=== PATIENT | female | born 1930 | race Caucasian/White ===

== ENCOUNTER 2017-05-06 13:15 | Emergency (ER) | payer MEDICARE, OTHER ==
[~2017-05-06] VITALS: Ht 154.9 cm; Wt 63.5 kg
[~2017-05-06 13:15] MED LIST: ALBU2.5V13 IH; DISO100C4 PO; FERR240T2 PO; FLUT1DIS28 IH; FURO-152 PO; GUAI118S20 PO; METO-302 PO; METO25TA6 PO; MONT10TA25 PO; OMEP20CA4 PO; PRED-170 PO; PROP10TA10 PO; PROP10TA29 PO; ROSU5TAB PO; VERA240C2 PO; VERA240T97 PO
--- NOTE | 2017-05-06 13:44 | NUR ---
Pt evaluated by MD for back pain, s/p mechanical fall. A/O x 4, nad noted, orders obtained, awaiting CT.
--- NOTE | 2017-05-06 14:57 | NUR ---
Patient discharged home in stable conditon. Written and verbal after care instructions given. Patient verbalizes understanding of instructions. Family with pt.
[2017-05-06 14:59] VITALS: BP 156/60
== END 2017-05-06 15:00 | disposition home or self-care (01) ==
LOC: ER 13:15
DX: S20.219A Contusion of unspecified front wall of thorax, initial encounter (principal); I11.0 Hypertensive heart disease with heart failure; I50.9 Heart failure, unspecified; I25.10 Atherosclerotic heart disease of native coronary artery without angina pectoris; K21.9 Gastro-esophageal reflux disease without esophagitis; E11.9 Type 2 diabetes mellitus without complications; Z90.49 Acquired absence of other specified parts of digestive tract; W01.190A Fall on same level from slipping, tripping and stumbling with subsequent striking against furniture, initial encounter; Y93.89 Activity, other specified; Y92.9 Unspecified place or not applicable; Y99.9 Unspecified external cause status
CPT/HCPCS: 71250; A4663

== ENCOUNTER 2017-10-27 12:10 | Emergency (ER) | payer MEDICARE, MEDICAID ==
[~2017-10-27] VITALS: Ht 154.9 cm; Wt 63.5 kg
[~2017-10-27 12:10] MED LIST changes: -FERR240T2 PO; -FLUT1DIS28 IH; -GUAI118S20 PO; -METO-302 PO; +METO-356 PO; -OMEP20CA4 PO; -PRED-170 PO; -PROP10TA10 PO; -PROP10TA29 PO; -VERA240C2 PO
--- NOTE | 2017-10-27 12:30 | NUR ---
PT ND DAUGHTER EXPRESSING THAT RATHER GO TO [facility] FOR FOLLOW UP BECAUSE THEIR MD AND CREW SUPERVISOR IS THERE AND THEY HAVE APPT WITH THEM.
[2017-10-27] MEDS ORDERED: ROSU5TAB PO (12:35)
[2017-10-27] MEDS ORDERED: POTA10CA43 PO (12:35)
[2017-10-27] MEDS ORDERED: EPLE25TA10 PO (12:35)
[2017-10-27] MEDS ORDERED: SENN-71 PO (12:35)
[2017-10-27] MEDS ORDERED: METO-357 PO (12:35)
[2017-10-27 13:04] LABS: HEMATOCRIT 35.1 % (31.2-41.9); HEMOGLOBIN 11.7 g/dL (10.9-14.3); MEAN CORPUSCULAR HEMOGLOBIN 28.1 uug (24.7-32.8); MEAN CORPUSCULAR HGB CONC 33 g/dL (32.3-35.6); MEAN CORPUSCULAR VOLUME 84.2 fL (75.5-95.3); NEUTROPHILS % (AUTO) 63.9 % (38.5-71.5); PLATELET COUNT (AUTO) 318 K/uL (179-408); RED BLOOD CELL COUNT(AUTO) 4.17 MIL/uL (3.63-4.92); WHITE BLOOD COUNT (AUTO) 4.5 K/uL (3.8-11.8)
[2017-10-27 13:05] LABS: BASOPHILS # (AUTO) 0.1 K/uL (0.0-8.0); BASOPHILS % (AUTO) 1.2 % (0.0-2.0); EOSINOPHILS # (AUTO) 0.1 K/uL (0.0-0.7); EOSINOPHILS % (AUTO) 2.3 % (0.0-7.0); LYMPHOCYTES # (AUTO) 1.1 K/uL (20.0-40.0); LYMPHOCYTES % (AUTO) 23.6 % (20.5-51.5); MONOCYTES # (AUTO) 0.4 K/uL (2.0-10.0); NEUTROPHILS # (AUTO) 2.8 K/uL (1.8-8.9)
[2017-10-27] MEDS ORDERED: PROP20TA7 PO (13:11)
--- NOTE | 2017-10-27 13:11 | NUR ---
MEDICATION LIST REVIEWED WITH PT'S DAUGHTER.
[2017-10-27 13:15] LABS: CARBON DIOXIDE 27 mmol/L (21-32); CHLORIDE 97 mmol/L (98-107); CREATININE 0.9 mg/dL (0.6-1.3); GLUCOSE 92 mg/dL (74-106); POTASSIUM 4.1 mmol/L (3.5-5.1); UREA NITROGEN, BLOOD 9 mg/dL (7-18)
[2017-10-27 13:28] LABS: ALANINE AMINOTRANSFERASE 17 U/L (14-59); ALKALINE PHOSPHATASE 78 U/L (50-136); ASPARTATE AMINOTRANSFERASE 17 U/L (15-37); BILIRUBIN,DIRECT 0.1 mg/dL (0.0-0.2); BILIRUBIN,TOTAL 0.5 mg/dL (0.2-1.0); TOTAL PROTEIN, SERUM 7.8 g/dL (6.4-8.2)
[2017-10-27] MEDS ORDERED: PEDIATRIC ORAL ELECTROLYTE 237 ML BOTTLE PO ONE (14:00)
[2017-10-27] MEDS ORDERED: PEDIATRIC ORAL ELECTROLYTE 237 ML BOTTLE ONE (14:03)
--- NOTE | 2017-10-27 14:43 | NUR ---
Patient discharged to home in stable conditon. Written and verbal after care instructions given. Patient verbalizes understanding of instructions.PT WALKS IN STEADY GAIT. PT ACCOMPANIED BY DAUGHTER WHO IS VERY INVOLVED IN CARE OF THE PT.
[2017-10-27 14:45] VITALS: BP 141/69
== END 2017-10-27 14:48 | disposition home or self-care (01) ==
LOC: ER 12:10
DX: J90 Pleural effusion, not elsewhere classified (principal); R19.7 Diarrhea, unspecified; I11.0 Hypertensive heart disease with heart failure; I50.9 Heart failure, unspecified; E11.9 Type 2 diabetes mellitus without complications; I25.10 Atherosclerotic heart disease of native coronary artery without angina pectoris; K21.9 Gastro-esophageal reflux disease without esophagitis; Z90.49 Acquired absence of other specified parts of digestive tract; Z79.899 Other long term (current) drug therapy
CPT/HCPCS: 36415; 71045; 80048; 80076; 83605; 83880; 84484; 85025; 85730; 87040 ×2; 93005; 99285; A4663; 70030-TC

== ENCOUNTER 2018-04-08 21:35 | Inpatient (IN) | payer MEDICARE, MEDICAID ==
[~2018-04-08] VITALS: Ht 152.4 cm; Wt 61.2 kg
[~2018-04-08 21:35] MED LIST changes: +EPLE25TA10 PO; +METO-357 PO; -METO25TA6 PO; -MONT10TA25 PO; +POTA10CA43 PO; +PROP20TA7 PO; +SENN-71 PO; -VERA240T97 PO
--- NOTE | 2018-04-08 21:40 | NUR ---
Dr. Porter at bedside for MSE. Pt bib rescue 88, c/o sob x 1 hour, has hx of chf, edema +2 on bilat low ext.
[2018-04-08] MEDS ORDERED: NITROGLYCERIN 0.4 MG/TAB BOTTLE SL ONE ×2 (21:45→21:52)
--- NOTE | 2018-04-08 21:47 | NUR ---
Respiratory at bedside.
--- NOTE | 2018-04-08 21:50 | NUR ---
Pt received in ER with respiratory distress. Placed on BIPAP per MD Poretr's verbal orders. Pt is on BIPAP 12/5, Rate-12, FIO2-100%.. Tolerating settings well. Increase in SpO2-98%, and Decreased WOB observed. Minimal leak achieved. Alarm parameters checked, on and audible. Will continue to monitor.
[2018-04-08 22:00] LABS: ABG BASE EXCESS 2.7 mmol/L; ABG HCO3 27.6 mmol/L; ABG PCO2 43.6 mmHg (35.0-45.0); ABG PH 7.419 (7.350-7.450); ABG PO2 157.8 mmHg (75.0-100.0); ABG SITE LEFT RADIAL; ABG TOTAL HEMOGLOBIN 13.1 G/dL (12.0-16.0); COHb 1.7 % (0.5-1.5); MetHb 0.1 % (0.0-1.5); O2Hb 97.8 % (94.0-97.0)
--- NOTE | 2018-04-08 22:00 | NUR ---
ABG results reported to Dr Porter. FIO2 decreased to 70% per MD verbal order.
[2018-04-08 22:04] LABS: BASOPHILS # (AUTO) 0.1 K/uL (0.0-8.0); BASOPHILS % (AUTO) 0.5 % (0.0-2.0); EOSINOPHILS # (AUTO) 0.1 K/uL (0.0-0.7); EOSINOPHILS % (AUTO) 0.7 % (0.0-7.0); HEMATOCRIT 39.8 % (31.2-41.9); LYMPHOCYTES # (AUTO) 1.1 K/uL (20.0-40.0); LYMPHOCYTES % (AUTO) 10.9 % (20.5-51.5); MEAN CORPUSCULAR HEMOGLOBIN 29.3 uug (24.7-32.8); MEAN CORPUSCULAR HGB CONC 33 g/dL (32.3-35.6); MEAN CORPUSCULAR VOLUME 89.6 fL (75.5-95.3); MONOCYTES # (AUTO) 0.7 K/uL (2.0-10.0); MONOCYTES % (AUTO) 6.5 % (0.0-11.0); NEUTROPHILS # (AUTO) 8.1 K/uL (1.8-8.9); NEUTROPHILS % (AUTO) 81.4 % (38.5-71.5); PLATELET COUNT (AUTO) 585 K/uL (179-408); RED BLOOD CELL COUNT(AUTO) 4.44 MIL/uL (3.63-4.92)
[2018-04-08] MEDS ORDERED: FURO-152 PO (22:06)
[2018-04-08] MEDS ORDERED: FERR325T6 PO (22:06)
[2018-04-08] MEDS ORDERED: APIX2.5T PO (22:06)
[2018-04-08] MEDS ORDERED: VERA120C3 PO (22:06)
[2018-04-08] MEDS ORDERED: SPIR25TA6 PO (22:06)
[2018-04-08] MEDS ORDERED: ROSU5TAB PO (22:06)
[2018-04-08] MEDS ORDERED: AMIO100T PO (22:06)
--- NOTE | 2018-04-08 22:09 | NUR ---
Xray at bedside.
[2018-04-08 22:12] LABS: CARBON DIOXIDE 31 mmol/L (21-32); CHLORIDE 99 mmol/L (98-107); GLUCOSE 185 mg/dL (74-106); POTASSIUM 4.4 mmol/L (3.5-5.1); UREA NITROGEN, BLOOD 19 mg/dL (7-18)
[2018-04-08 22:25] LABS: ALANINE AMINOTRANSFERASE 34 U/L (14-59); ALKALINE PHOSPHATASE 106 U/L (50-136); ASPARTATE AMINOTRANSFERASE 20 U/L (15-37); BILIRUBIN,DIRECT 0.1 mg/dL (0.0-0.2); BILIRUBIN,TOTAL 0.4 mg/dL (0.2-1.0); TOTAL PROTEIN, SERUM 7.9 g/dL (6.4-8.2)
[2018-04-08] MEDS ORDERED: FUROSEMIDE 20 MG/2 ML VIAL IV ONE (22:30)
[2018-04-08] MEDS ORDERED: FUROSEMIDE 40 MG/4 ML VIAL ONE (22:34)
--- NOTE | 2018-04-08 22:36 | NUR ---
Dr. Porter speaking with [facility] Dr. Jeff Cotton.
--- NOTE | 2018-04-08 23:00 | NUR ---
Report given to Ayana VILLARREAL NEO.
[2018-04-08] MEDS ORDERED: ACETAMINOPHEN 325 MG TABLET PO PRN (23:30)
[2018-04-08] MEDS ORDERED: HYDROCODONE/APAP 5-325MG TABLET PO PRN (23:30)
[2018-04-08] MEDS ORDERED: ONDANSETRON 4 MG/2 ML VIAL IV PRN (23:30)
[2018-04-08] MEDS ORDERED: IPRATROPIUM BROMIDE 0.5 MG/2.5 ML NEBU NEB PRN (23:30)
[2018-04-08] MEDS ORDERED: MAGNESIUM HYDROXIDE 30 ML LIQUID UDC PO PRN (23:30)
[2018-04-08] MEDS ORDERED: ZOLPIDEM 5 MG TABLET PO PRN (23:30)
[2018-04-08] MEDS ORDERED: ALBUTEROL SULFATE 2.5 MG/3 ML NEBU NEB PRN (23:30)
[2018-04-08] MEDS ORDERED: Medication Not On Formulary EA (Rosuvastatin Calcium (Crestor) 5 MG) PO SCH (23:45)
[2018-04-08 23:57] VITALS: BP 112/70
--- NOTE | 2018-04-09 | NUR ---
In from ER via [facility], 87 y/o female patient admitted to Tele-TD Dx. CHF. Patient was placed on BIPAP due to low O2Sat & refusing O2 NRB Mask. Seen by [facility] final operations technician HEAD UP OPERATOR HELPER, Alex Cotton. Admission orders received & carried out. Exertional SOB noted, patient refusing BIPAP. Bipap maintained & kept on high barakat's position. Abdomen distended, patient denies abdominal pain. Family in room. Patient is on strict I & O, explained to patient & family that a molina catheter was ordered & needs to be inserted. Family agreed. Vital signs WNL. cardiac monitor applied- AV pacing on the monitor.
[2018-04-09] MEDS ORDERED: FUROSEMIDE 20 MG/2 ML VIAL IV ONE (03:00)
--- NOTE | 2018-04-09 03:09 | NUR ---
Lasix 40 mg IVP adm. Inserted Fr. 18 Virk catheter using aseptic technique. Bulb inflated with 10 ml sterile saline. Catheter secured to right inner thigh. 575 ml pale yellow urine return noted in bag. Collected sterile sample and sent to lab. Patient denies discomfort. Kept side rails up x2 in low position, call light within reach. AV paced on the monitor w/ HR 60 bpm.
--- NOTE | 2018-04-09 03:30 | NUR ---
Patient still anxious, refusing BIPAP. Placed on humidified O2 3 L/nasally & monitored. Patient O2Sat 100%
[2018-04-09 04:00] VITALS: BP 121/50
[2018-04-09] MEDS: PANTOPRAZOLE SODIUM 40 MG TABLET.DR PO SCH (06:19)
--- NOTE | 2018-04-09 06:35 | NUR ---
Asleep resting comfortably. No sign of distress. AV paced on the monitor. Patient's daughter at bedside.
[2018-04-09 07:36] VITALS: BP 112/51
[2018-04-09 08:01] LABS: BASOPHILS % (AUTO) 0.3 % (0.0-2.0); EOSINOPHILS % (AUTO) 0.5 % (0.0-7.0); HEMATOCRIT 36.8 % (31.2-41.9); HEMOGLOBIN 12.1 g/dL (10.9-14.3); LYMPHOCYTES % (AUTO) 12.4 % (20.5-51.5); MEAN CORPUSCULAR HEMOGLOBIN 28.9 uug (24.7-32.8); MEAN CORPUSCULAR HGB CONC 33 g/dL (32.3-35.6); MEAN CORPUSCULAR VOLUME 87.9 fL (75.5-95.3); MONOCYTES # (AUTO) 0.6 K/uL (2.0-10.0); NEUTROPHILS # (AUTO) 6.4 K/uL (1.8-8.9); NEUTROPHILS % (AUTO) 79.8 % (38.5-71.5); PLATELET COUNT (AUTO) 499 K/uL (179-408); RED BLOOD CELL COUNT(AUTO) 4.19 MIL/uL (3.63-4.92); WHITE BLOOD COUNT (AUTO) 8.1 K/uL (3.8-11.8)
--- NOTE | 2018-04-09 08:06 | NUR ---
RECEIVED AN 87 Y/O FEMALE PT A CASE OF CHF, SOB. CONSCIOUS, ORIENTED X3, CONNECTED TO TELE BOX, BREATHING VIA N/C 3LPM, HAS A LT HAND IV LINE ON SALINE LOCK, URINATING VIA FC.
[2018-04-09 08:13] LABS: CARBON DIOXIDE 37 mmol/L (21-32); CHLORIDE 98 mmol/L (98-107); GLUCOSE 108 mg/dL (74-106); POTASSIUM 3.9 mmol/L (3.5-5.1)
[2018-04-09 08:14] LABS: ALANINE AMINOTRANSFERASE 28 U/L (14-59); ALKALINE PHOSPHATASE 105 U/L (50-136); ASPARTATE AMINOTRANSFERASE 22 U/L (15-37); BILIRUBIN,TOTAL 0.5 mg/dL (0.2-1.0); CHOLESTEROL 154 mg/dL (<200); CREATININE 0.9 mg/dL (0.6-1.3); HDL CHOLESTEROL 63 mg/dL (40-60); MAGNESIUM 2.3 mg/dL (1.8-2.4); PHOSPHOROUS 3.5 mg/dL (2.5-4.9); TOTAL PROTEIN, SERUM 7.5 g/dL (6.4-8.2); TRIGLYCERIDES 79 MG/DL (30-150); UREA NITROGEN, BLOOD 16 mg/dL (7-18)
[2018-04-09] MEDS: METOPROLOL SUCCINATE XL 25 MG TAB.SR.24H PO SCH ×2 (08:52→17:56)
[2018-04-09] MEDS ORDERED: FUROSEMIDE 20 MG TABLET PO ONE (09:00)
[2018-04-09] MEDS ORDERED: VERAPAMIL HCL 120 MG PO SCH (09:00)
[2018-04-09] MEDS ORDERED: FERROUS SULFATE 325 MG TABEC PO SCH (09:00)
[2018-04-09] MEDS ORDERED: VERAPAMIL SR 120 MG TABLET.SA PO SCH ×2 (09:00→10:26)
[2018-04-09] MEDS ORDERED: SPIRONOLACTONE 25 MG TABLET PO SCH (09:00)
[2018-04-09] MEDS ORDERED: Medication Not On Formulary EA (Ferrous Sulfate 325 MG) PO SCH (09:00)
[2018-04-09] MEDS ORDERED: APIXABAN 5 MG TABLET PO ONE (09:15)
[2018-04-09] MEDS ORDERED: AMIODARONE HCL 200 MG TABLET PO SCH (09:36)
[2018-04-09 10:25] LABS: *BILIRUBIN,URIN NEGATIVE (NEGATIVE); *BLOOD, URINE Trace-intact (NEGATIVE); *CLARITY,URINE CLEAR (CLEAR); *COLOR,URINE YELLOW (YELLOW); *KETONES,URINE NEGATIVE (NEGATIVE); *PROTEIN,URINE NEGATIVE (NEGATIVE); *UROBILINOGEN,URINE 0.2 E.U./dl (NORMAL); LEUKOCYTE ESTERASE ,URINE NEGATIVE (NEGATIVE); NITRITE, URINE NEGATIVE (NEGATIVE); UGLUCOSE NEGATIVE (NEGATIVE)
[2018-04-09 10:28] LABS: BACTERIA,URINE FEW /HPF (NONE SEEN); SQUAMOUS EPITHELIAL CELL,UR MODERATE /HPF (NONE SEEN); WBC,URINE 0-3 /HPF (0-3)
[2018-04-09 11:27] VITALS: BP 119/53
[2018-04-09] MEDS ORDERED: GLYCERIN ADULT RECTAL SUPP EACH RC PRN (11:45)
[2018-04-09] MEDS: FERROUS SULFATE 325 MG TABEC PO SCH (12:00)
[2018-04-09 15:36] VITALS: BP 140/58
[2018-04-09] MEDS ORDERED: Medication Not On Formulary EA (Apixaban (Eliquis) 2.5 MG) PO SCH (17:00)
[2018-04-09] MEDS: ELIQUIS 2.5 MG PO SCH (18:57)
[2018-04-09 20:00] VITALS: BP 111/49
[2018-04-09] MEDS: BISACODYL 10 MG SUPP.RECT RC PRN (20:31)
[2018-04-09] MEDS: Z GUARD REMEDY PASTE 57 GM TUBE TOP PRN (21:00)
--- NOTE | 2018-04-09 21:30 | NUR ---
escorted patient to the bathroom .hand held assist , lower leg weakness noted,but able to walk . patient had a moderate bm, x1.
--- NOTE | 2018-04-09 21:46 | NUR ---
patient seen by dr: saad pham spoked with patients and patients daughter .
[2018-04-10 00:19] VITALS: BP 118/47
--- NOTE | 2018-04-10 01:08 | NUR ---
PATIENTS DAUGHTER WANTS THE BRADLEY CATHETER OUT , DAUGHTER WENT TO NURSING STATION AND DEMANDING TO HAVE THE BRADLEY REMOVE . CHECK BRADLEY CATHETER PLACEMENT IN PLACED BAG BELOW THE BLADDER AND F/C IS SECURED WITH GOOD URINARY OUTPUT , DAUGHTER INSISTED SHE WANTS IT OUT AND HER MOM HAS NO PROBLEM IN URINATING .SHE SAID SHE WANTS IT OUT AND DISCONTINUED RIGHT AWAY SHE DONT CARE WHAT THE DOCTORS SAYS. REMOVED F/C AND BED SIDE COMMODE PROVIDED AND ADVISED TO CALL FOR ASSISTANCE .DAUGHTER WITH PATIENT IN ROOM.
[2018-04-10] MEDS: PANTOPRAZOLE SODIUM 40 MG TABLET.DR PO SCH ×2 (06:33→06:54)
--- NOTE | 2018-04-10 06:34 | NUR ---
PATIENT DAUGHTER REFUSED PROTONIX EVEN WITH EDUCATION , SHE SAID SHE DONT HAVE PROBLEM WITH STOMACH ACIDITY .
[2018-04-10 06:47] VITALS: BP 117/48
[2018-04-10 06:54] LABS: CARBON DIOXIDE 37 mmol/L (21-32); CHLORIDE 98 mmol/L (98-107); CREATININE 0.8 mg/dL (0.6-1.3); GLUCOSE 97 mg/dL (74-106); UREA NITROGEN, BLOOD 14 mg/dL (7-18)
[2018-04-10 06:56] LABS: BASOPHILS % (AUTO) 0.5 % (0.0-2.0); EOSINOPHILS # (AUTO) 0.1 K/uL (0.0-0.7); EOSINOPHILS % (AUTO) 1.4 % (0.0-7.0); HEMATOCRIT 35.2 % (31.2-41.9); HEMOGLOBIN 11.5 g/dL (10.9-14.3); LYMPHOCYTES # (AUTO) 0.8 K/uL (20.0-40.0); LYMPHOCYTES % (AUTO) 12.7 % (20.5-51.5); MEAN CORPUSCULAR HEMOGLOBIN 29.4 uug (24.7-32.8); MEAN CORPUSCULAR HGB CONC 33 g/dL (32.3-35.6); MEAN CORPUSCULAR VOLUME 89.9 fL (75.5-95.3); MONOCYTES # (AUTO) 0.5 K/uL (2.0-10.0); MONOCYTES % (AUTO) 8.1 % (0.0-11.0); NEUTROPHILS % (AUTO) 77.3 % (38.5-71.5); PLATELET COUNT (AUTO) 403 K/uL (179-408); RED BLOOD CELL COUNT(AUTO) 3.92 MIL/uL (3.63-4.92); WHITE BLOOD COUNT (AUTO) 6.5 K/uL (3.8-11.8)
[2018-04-10] MEDS: Z GUARD REMEDY PASTE 57 GM TUBE TOP PRN (07:15)
--- NOTE | 2018-04-10 07:52 | NUR ---
RECEIVED AN 87 Y/O FEMALE PT A CASE OF CHF, SOB. CONSCIOUS, ORIENTED X3, CONNECTED TO TELE BOX, BREATHING VIA N/C 3LPM, HAS A LT HAND IV LINE ON SALINE LOCK.PT IS URINATING FREELY AND WALKS WITH 2 PERSON ASSISTANCE AND HAS REDNESS ON HER SACRAL AREA
[2018-04-10 08:00] VITALS: BP 124/53
[2018-04-10] MEDS: ELIQUIS 2.5 MG PO SCH (08:55)
[2018-04-10] MEDS ORDERED: AMIODARONE HCL 200 MG TABLET PO SCH (09:00)
[2018-04-10] MEDS ORDERED: METOPROLOL SUCCINATE XL 50 MG TAB.SR.24H PO SCH (09:00)
[2018-04-10] MEDS ORDERED: FUROSEMIDE 20 MG/2 ML VIAL IV ONE (09:15)
[2018-04-10 11:22] VITALS: BP 126/50
--- NOTE | 2018-04-10 11:30 | NUR ---
PATIENT WITH ASSISTANCE OF PT WALKED ABOUT 200 FT IN THE HALLWAY AND BACK TO HER ROOM ON A RECLINER CHAIR.
--- NOTE | 2018-04-10 11:54 | NUR ---
WOUND CARE CONSULT PATIENT SEEN AND SKIN INTEGRITY ASSESSMENT DONE. PLEASE SEE HANDS ASSEMBLER ASSESSMENT IN PCS FOR TODAY ALONG WITH ALL RECOMMENDATIONS. PATIENT WITH RE AT 14. CONTINUE ALL SKIN MANAGEMENT AND PRESSURE ULCER PREVENTION PER CURRENT PLAN OF CARE. ALL DISCUSSED WITH NURSING AT THE BEDSIDE. WILL SEE PRN.
[2018-04-10] MEDS: FERROUS SULFATE 325 MG TABEC PO SCH (12:06)
[2018-04-10 15:10] VITALS: BP 109/48
[2018-04-10] MEDS ORDERED: PANT40TA2 PO (16:36)
[2018-04-10] MEDS ORDERED: AMIO200T6 PO (16:36)
[2018-04-10] MEDS ORDERED: METO50TA7 PO (16:36)
[2018-04-10] MEDS ORDERED: BISA10SU12 RC (16:36)
--- NOTE | 2018-04-10 16:39 | NUR ---
SEEN BY DR KRUSE ,ORDERED FOR PATIENT TO BE DISCHARGED TO HOME. ALL ORDERS CARRIED OUT.
--- NOTE | 2018-04-10 17:30 | NUR ---
PATIENT DISCHARGED TO HOME WITH SON AND DAUGHTER. SENT DOWN VIA WHEEL CHAIR, TOOK ALL PT'S BELONGINGS
[2018-04-10] MEDS: BISACODYL 10 MG SUPP.RECT RC PRN (17:36)
[2018-04-10] MEDS ORDERED: ATORVASTATIN 10 MG TABLET PO SCH (21:00)
== END 2018-04-10 18:00 | disposition home health service (06) | DRG 291 ==
LOC: ER 21:36 → DOU 23:02 → TELE-TD 04-09 00:45 → MED 04-10 17:00
PROVIDERS: ADMIT Nurse Practitioner Acute Care; ATTEND Nurse Practitioner Acute Care
PROC: 5A09357 Assistance with Respiratory Ventilation, Less than 24 Consecutive Hours, Continuous Positive Airway Pressure (ICD-10-PCS; principal; 2018-04-08)
DX: I11.0 Hypertensive heart disease with heart failure (principal); J96.01 Acute respiratory failure with hypoxia; E43 Unspecified severe protein-calorie malnutrition; D68.59 Other primary thrombophilia; I50.33 Acute on chronic diastolic (congestive) heart failure; I42.1 Obstructive hypertrophic cardiomyopathy; Z68.26 Body mass index [BMI] 26.0-26.9, adult; K59.09 Other constipation; Z95.0 Presence of cardiac pacemaker; Z87.01 Personal history of pneumonia (recurrent); I48.0 Paroxysmal atrial fibrillation; Z90.49 Acquired absence of other specified parts of digestive tract; E78.5 Hyperlipidemia, unspecified; Z79.01 Long term (current) use of anticoagulants; I34.0 Nonrheumatic mitral (valve) insufficiency; E88.09 Other disorders of plasma-protein metabolism, not elsewhere classified; I07.1 Rheumatic tricuspid insufficiency; E11.65 Type 2 diabetes mellitus with hyperglycemia; I25.10 Atherosclerotic heart disease of native coronary artery without angina pectoris; J44.9 Chronic obstructive pulmonary disease, unspecified; K21.9 Gastro-esophageal reflux disease without esophagitis
CPT/HCPCS: 36415; 36600; 70030-TC; 71045; 76604; 82378; 83735; 84100; 85025; 85730; 93005; 93307; 94660; 97116; 97530; A4663; J1940

== ENCOUNTER 2018-06-01 17:22 | Inpatient (IN) | payer MEDICARE, MEDICAID ==
[~2018-06-01] VITALS: Ht 177.8 cm; Wt 59.2 kg
[~2018-06-01 17:22] MED LIST changes: -ALBU2.5V13 IH; +AMIO200T6 PO; +APIX2.5T PO; +BISA10SU12 RC; -DISO100C4 PO; -EPLE25TA10 PO; +FERR325T6 PO; -METO-356 PO; -METO-357 PO; +METO50TA7 PO; +PANT40TA2 PO; -POTA10CA43 PO; -PROP20TA7 PO; -SENN-71 PO; +SPIR25TA6 PO; +VERA120C3 PO
[2018-06-01 18:30] LABS: BASOPHILS # (AUTO) 0.1 K/uL (0.0-8.0); BASOPHILS % (AUTO) 0.7 % (0.0-2.0); EOSINOPHILS # (AUTO) 0.1 K/uL (0.0-0.7); HEMATOCRIT 30.4 % (31.2-41.9); HEMOGLOBIN 9.9 g/dL (10.9-14.3); LYMPHOCYTES # (AUTO) 1.2 K/uL (20.0-40.0); LYMPHOCYTES % (AUTO) 15.4 % (20.5-51.5); MEAN CORPUSCULAR HEMOGLOBIN 28.6 uug (24.7-32.8); MEAN CORPUSCULAR HGB CONC 33 g/dL (32.3-35.6); MEAN CORPUSCULAR VOLUME 87.5 fL (75.5-95.3); MONOCYTES # (AUTO) 0.5 K/uL (2.0-10.0); MONOCYTES % (AUTO) 7.1 % (0.0-11.0); NEUTROPHILS # (AUTO) 5.8 K/uL (1.8-8.9); NEUTROPHILS % (AUTO) 75.8 % (38.5-71.5); PLATELET COUNT (AUTO) 413 K/uL (179-408); RED BLOOD CELL COUNT(AUTO) 3.47 MIL/uL (3.63-4.92); WHITE BLOOD COUNT (AUTO) 7.6 K/uL (3.8-11.8)
[2018-06-01 18:40] LABS: CARBON DIOXIDE 27 mmol/L (21-32); CHLORIDE 104 mmol/L (98-107); CREATININE 0.9 mg/dL (0.6-1.3); GLUCOSE 99 mg/dL (74-106); POTASSIUM 4.1 mmol/L (3.5-5.1); UREA NITROGEN, BLOOD 19 mg/dL (7-18)
[2018-06-01 18:41] LABS: ALANINE AMINOTRANSFERASE 22 U/L (14-59); ALKALINE PHOSPHATASE 68 U/L (50-136); ASPARTATE AMINOTRANSFERASE 14 U/L (15-37); BILIRUBIN,DIRECT 0.1 mg/dL (0.0-0.2); BILIRUBIN,TOTAL 0.3 mg/dL (0.2-1.0); LIPASE 114 U/L (73-393); TOTAL PROTEIN, SERUM 6.8 g/dL (6.4-8.2)
[2018-06-01] MEDS ORDERED: DIATR MEGLU/DIATRIZOATE SODIUM 120 ML BOTTLE PO ONE ×2 (18:45→21:45)
[2018-06-01] MEDS ORDERED: MORPHINE SULFATE 4 MG/1 ML DISP.SYRIN IV ONE (20:00)
[2018-06-01] MEDS ORDERED: ONDANSETRON IV *ER 4 MG/2 ML VIAL IV ONE (20:00)
[2018-06-01] MEDS ORDERED: ONDANSETRON 4 MG/2 ML VIAL ONE (20:03)
[2018-06-01] MEDS ORDERED: MORPHINE SULFATE 4 MG/1 ML DISP.SYRIN ONE (20:03)
[2018-06-01] MEDS ORDERED: ACETAMINOPHEN ES 500 MG TABLET ONE (20:07)
[2018-06-01] MEDS ORDERED: ACETAMINOPHEN 325 MG TABLET PO ONE (20:15)
[2018-06-01] MEDS ORDERED: DIATR MEGLU/DIATRIZOATE SODIUM 120 ML BOTTLE ONE (21:34)
[2018-06-02 01:00] VITALS: BP 108/47
[2018-06-02] MEDS ORDERED: VERA120T91 PO (02:43)
[2018-06-02] MEDS ORDERED: AMIO200T4 PO (02:43)
[2018-06-02] MEDS ORDERED: METO100T7 PO (02:43)
[2018-06-02] MEDS ORDERED: FURO-151 PO (02:43)
[2018-06-02] MEDS ORDERED: MAGN400T6 PO (02:43)
[2018-06-02] MEDS ORDERED: ROSU5TAB PO (02:43)
[2018-06-02] MEDS ORDERED: APIX2.5T PO (02:43)
[2018-06-02] MEDS ORDERED: MIRT15TA PO ×2 (02:43→12:08)
[2018-06-02] MEDS ORDERED: HYDR28.316 RC (02:43)
[2018-06-02] MEDS ORDERED: SPIR25TA PO (02:43)
[2018-06-02] MEDS ORDERED: FLEET ENEMA 133 ML BOTTLE RC ONE (03:00)
[2018-06-02 04:00] VITALS: BP 114/42
[2018-06-02] MEDS ORDERED: AMIODARONE HCL 200 MG TABLET PO SCH (10:15)
[2018-06-02] MEDS ORDERED: METOPROLOL SUCCINATE XL 100 MG TAB.SR.24H PO SCH (10:15)
[2018-06-02 10:23] VITALS: BP 102/52
[2018-06-02] MEDS ORDERED: BISACODYL 10 MG SUPP.RECT RC PRN (11:30)
[2018-06-02] MEDS ORDERED: NA P133E RC (12:08)
[2018-06-02] MEDS ORDERED: HYDROCORTISONE 2.5 % RECTAL CREAM 28.35 GM TUBE RC SCH (17:00)
[2018-06-02] MEDS ORDERED: Medication Not On Formulary EA (Apixaban (Eliquis) 2.5 MG) PO SCH (17:00)
[2018-06-02] MEDS ORDERED: SPIRONOLACTONE 25 MG TABLET PO SCH (17:00)
[2018-06-02] MEDS ORDERED: MIRTAZAPINE 15 MG TABLET PO SCH (21:00)
[2018-06-03] MEDS ORDERED: PANTOPRAZOLE SODIUM 40 MG TABLET.DR PO SCH (07:00)
[2018-06-03] MEDS ORDERED: MAGNESIUM OXIDE 400 MG TABLET PO SCH (09:00)
[2018-06-03] MEDS ORDERED: AMIODARONE HCL 200 MG TABLET PO SCH ×2 (09:00)
[2018-06-03] MEDS ORDERED: FUROSEMIDE 40 MG TABLET PO SCH (09:00)
[2018-06-03] MEDS ORDERED: METOPROLOL SUCCINATE XL 100 MG TAB.SR.24H PO SCH (09:00)
[2018-06-03] MEDS ORDERED: VERAPAMIL SR 120 MG TABLET.SA PO SCH (09:00)
== END 2018-06-02 13:54 | disposition home or self-care (01) | DRG 392 ==
LOC: ER 17:24 → MED 06-02 00:54
PROVIDERS: ADMIT Internal Medicine; ATTEND Internal Medicine
DX: K59.01 Slow transit constipation (principal); I13.0 Hypertensive heart and chronic kidney disease with heart failure and stage 1 through stage 4 chronic kidney disease, or unspecified chronic kidney disease; I50.32 Chronic diastolic (congestive) heart failure; J98.11 Atelectasis; I49.5 Sick sinus syndrome; I48.2 Chronic atrial fibrillation; Z79.01 Long term (current) use of anticoagulants; K21.9 Gastro-esophageal reflux disease without esophagitis; Z95.0 Presence of cardiac pacemaker; Z87.01 Personal history of pneumonia (recurrent); E11.22 Type 2 diabetes mellitus with diabetic chronic kidney disease; N18.9 Chronic kidney disease, unspecified; J44.9 Chronic obstructive pulmonary disease, unspecified; E78.5 Hyperlipidemia, unspecified; D50.9 Iron deficiency anemia, unspecified; K57.30 Diverticulosis of large intestine without perforation or abscess without bleeding; F32.9 Major depressive disorder, single episode, unspecified; G47.00 Insomnia, unspecified
CPT/HCPCS: 36415; 83690; 85025; A4663; A9150; J2270; J2405; Q9963

== ENCOUNTER 2018-11-12 19:35 | Emergency (ER) | payer MEDICARE, OTHER ==
[~2018-11-12] VITALS: Ht 154.9 cm; Wt 55.8 kg
[~2018-11-12 19:35] MED LIST changes: +FURO-151 PO; -FURO-152 PO; +HYDR28.316 RC; +MAGN400T6 PO; +METO100T7 PO; -METO50TA7 PO; +MIRT15TA PO; +NA P133E RC; +VERA120T10 PO
--- NOTE | 2018-11-12 20:12 | NUR ---
Pt ambulates to ER with 2 family members with c/o headache & right side pain s/p fall 1-2 hrs ago. AAOx4. Denies LOC. No acute distress noted. No wounds noted. Will ctm.
[2018-11-12] MEDS ORDERED: ACETAMINOPHEN 325 MG TABLET PO ONE (20:30)
[2018-11-12] MEDS ORDERED: ACETAMINOPHEN 325 MG TABLET ONE (20:33)
--- NOTE | 2018-11-12 21:14 | NUR ---
Pt back from radiology dept back in room 4B.
--- NOTE | 2018-11-12 21:46 | NUR ---
Patient discharged to home in stable conditon. Written and verbal after care instructions given. Patient verbalizes understanding of instructions. Pt left ER in stable condition via wheelchair w 2 family members. All belongings w pt. VSS. NAD noted.
[2018-11-12 21:50] VITALS: BP 151/68
== END 2018-11-12 21:51 | disposition home or self-care (01) ==
LOC: ER 19:37
DX: S00.03XA Contusion of scalp, initial encounter (principal); R10.2 Pelvic and perineal pain; I11.0 Hypertensive heart disease with heart failure; I50.9 Heart failure, unspecified; I25.10 Atherosclerotic heart disease of native coronary artery without angina pectoris; K21.9 Gastro-esophageal reflux disease without esophagitis; E11.9 Type 2 diabetes mellitus without complications; Z95.0 Presence of cardiac pacemaker; Z90.49 Acquired absence of other specified parts of digestive tract; Z79.899 Other long term (current) drug therapy; W10.9XXA Fall (on) (from) unspecified stairs and steps, initial encounter; Y93.89 Activity, other specified; Y92.89 Other specified places as the place of occurrence of the external cause; Y99.8 Other external cause status
CPT/HCPCS: 70450; 72192; A4663

== ENCOUNTER 2019-06-21 19:16 | Emergency (ER) | payer MEDICARE, OTHER ==
[~2019-06-21] VITALS: Ht 142.2 cm; Wt 54.4 kg
[~2019-06-21 19:16] MED LIST changes: -HYDR28.316 RC; -PANT40TA2 PO; -VERA120T10 PO
[2019-06-21] MEDS ORDERED: ACETAMINOPHEN 325 MG TABLET PO ONE (20:15)
[2019-06-21] MEDS ORDERED: ACETAMINOPHEN 325 MG TABLET ONE (20:16)
--- NOTE | 2019-06-21 20:17 | NUR ---
RECEIVED PATIENT SITTING UP IN CHAIR LEFT WRIST AREA SWOLLEN AND PAINFUL, MEDICATED WITH TYLENOL.
[2019-06-21 20:26] LABS: BASOPHILS % (AUTO) 0.7 % (0.0-2.0); EOSINOPHILS # (AUTO) 0.2 K/uL (0.0-0.7); EOSINOPHILS % (AUTO) 2.5 % (0.0-7.0); HEMATOCRIT 39.2 % (31.2-41.9); HEMOGLOBIN 12.8 g/dL (10.9-14.3); LYMPHOCYTES # (AUTO) 1.2 K/uL (20.0-40.0); MEAN CORPUSCULAR HGB CONC 33 g/dL (32.3-35.6); MONOCYTES # (AUTO) 0.7 K/uL (2.0-10.0); MONOCYTES % (AUTO) 10.3 % (0.0-11.0); NEUTROPHILS # (AUTO) 4.4 K/uL (1.8-8.9); NEUTROPHILS % (AUTO) 67.5 % (38.5-71.5); PLATELET COUNT (AUTO) 277 K/uL (179-408); RED BLOOD CELL COUNT(AUTO) 4.26 MIL/uL (3.63-4.92); WHITE BLOOD COUNT (AUTO) 6.6 K/uL (3.8-11.8)
[2019-06-21 20:32] LABS: POTASSIUM 4.5 mmol/L (3.5-5.1)
--- NOTE | 2019-06-21 21:10 | NUR ---
PATIENT RESULTS POSTED DR ALICEA AT THE BEDSIDE DISCUSSING RESULTS OF EXAM.
[2019-06-21 21:32] VITALS: BP 115/60
== END 2019-06-21 21:15 | disposition home or self-care (01) ==
LOC: ER 19:17
DX: M25.532 Pain in left wrist (principal); J44.9 Chronic obstructive pulmonary disease, unspecified; I11.0 Hypertensive heart disease with heart failure; I50.9 Heart failure, unspecified; K21.9 Gastro-esophageal reflux disease without esophagitis; E78.5 Hyperlipidemia, unspecified; I48.91 Unspecified atrial fibrillation; E11.9 Type 2 diabetes mellitus without complications; Z90.49 Acquired absence of other specified parts of digestive tract; Z95.0 Presence of cardiac pacemaker; Z79.899 Other long term (current) drug therapy
CPT/HCPCS: 36415; 73110; 84550; 85025; A4663